=== PATIENT | female | born 1985 | race Caucasian/White ===

== ENCOUNTER 2019-11-22 10:15 | Outpatient (CLI) | payer MEDICAID, SELFPAY ==
[2019-11-22 10:49] LABS: Add Urine Microscopic? NO
[2019-11-22 10:54] LABS: Bilirubin Urine Neg (NEGATIVE); Blood Urine Neg (Negative); Glucose Urine UA Norm (Normal); Ketones Urine Negative (Negative); Leukocyte Esterase Urine Negative (Negative); Nitrate Urine Negative (Negative); Protein Urine Neg (Negative); Specific Gravity, Urine 1.025 (1.005-1.030); Urine Appearance Clear (CLEAR); Urine Color Yellow (Yellow); Urobilinogen Urine Norm (Negative)
[2019-11-22 11:00] VITALS: BP 90/54; PULSE 67
[2019-11-22 11:15] VITALS: BP 92/49; PULSE 67
[2019-11-22 11:46] LABS: Amorphous Sediment Urine 2+; Bacteria Urine TRACE; Mucus Urine TRACE; Squamous Epithelial Cell Urine 0-4 (0-5); WBC Urine 0-4 /hpf (0-5)
[2019-11-22 11:47] LABS: Add Urine Culture? No
[2019-11-22 11:48] VITALS: BP 95/54; PULSE 66
[2019-11-22 14:25] LABS: Nitrazine Paper, PH Negative
== END 2019-11-22 12:07 | disposition home or self-care (01) ==
LOC: OPOB 10:24 → OBGYN 11:58 → OPOB 11-24 14:09
PROVIDERS: Family Provider Chiropractor Orthopedic; Visit Provider Family Medicine
DX: O26.899 Other specified pregnancy related conditions, unspecified trimester (principal); Z3A.00 Weeks of gestation of pregnancy not specified; R25.2 Cramp and spasm
CPT/HCPCS: 81001; 81003; 83986; 99211

== ENCOUNTER → 2019-12-11 14:41 | Outpatient (BNVA) | payer MEDICAID, SELFPAY | PROVIDERS: Family Provider Chiropractor Orthopedic; PCP Family Medicine; Visit Provider Psychiatry & Neurology Psychiatry | DX: F60.3 Borderline personality disorder (principal); F43.12 Post-traumatic stress disorder, chronic; F33.2 Major depressive disorder, recurrent severe without psychotic features; F10.21 Alcohol dependence, in remission; F15.21 Other stimulant dependence, in remission | CPT/HCPCS: 99204 ==

== ENCOUNTER → 2020-01-01 09:44 | Outpatient (BNVA) | payer MEDICAID, SELFPAY | PROVIDERS: Family Provider Chiropractor Orthopedic; PCP Family Medicine; Visit Provider Psychiatry & Neurology Psychiatry | DX: F60.3 Borderline personality disorder (principal) | CPT/HCPCS: 99213 ==

== ENCOUNTER 2020-01-27 13:05 | Outpatient (CLI) | payer MEDICAID, SELFPAY ==
[2020-01-27] VITALS (9 sets, daily range): BP systolic 0–106; BP diastolic 0–59; PULSE 70–76; RESP 18–20; TEMP 36.9–37.1; BMI 29.0
[2020-01-27 14:20] LABS: Basophils % 0.2 %; Eosinophils # 0.1 10^3/uL (0.0-0.8); Eosinophils % 0.4 %; Hematocrit 38.8 % (37.0-47.0); Hemoglobin 12.8 g/dL (11.5-15.3); Lymphocytes # 1.6 10^3/uL (0.8-4.8); Lymphocytes % 10.7 %; Mean Corpuscular Hemoglobin 30.9 pg (28.0-34.0); Mean Corpuscular Volume 93.7 fL (81-99); Monocytes # 0.9 10^3/uL (0.2-0.9); Monocytes % 6.3 %; Neutrophils # 12.3 10^3/uL (1.8-7.7); Neutrophils % 81.8 %; Nucleated Red Blood Cells % 0 %; Platelet Count 190 10^3/cmm (130-400); Red Blood Count 4.14 10^6/uL (4.1-5.3); Red Cell Distribution Width 12.4 % (12.1-15.1)
--- NOTE | 2020-01-27 14:26 | PM.OBTRLD ---
OB L&D Triage Visit Information: Date of evaluation: 01/27/20 Evaluation: Laboratory results: Laboratory Tests 01/27/20 12:50 WBC 15.0 H RBC 4.14 Hgb 12.8 Hct 38.8 MCV 93.7 MCH 30.9 MCHC 33.0 RDW 12.4 Plt Count 190 MPV 12.0 H Neut % (Auto) 81.8 Lymph % (Auto) 10.7 [place] % (Auto) 6.3 Eos % (Auto) 0.4 Baso % (Auto) 0.2 Neut # (Auto) 12.3 H Lymph # (Auto) 1.6 [place] # (Auto) 0.9 Eos # (Auto) 0.1 Baso # (Auto) 0.0 Nucleated RBC % (a uto) 0 Nucleated RBCs # 0.0 Vital signs: Vital Signs - 24 hr 01/27/20 14:09 01/27/20 14:14 Pulse Rate 72 75 Blood Pressure 84/46 86/47 Final Diagnosis Final Diagnosis (1) Vertigo: Status: Acute Code(s): R42 - Dizziness and giddiness (2) with 29 completed weeks gestation: Status: Acute Code(s): Z3A.29 - 29 weeks gestation of (3) Amphetamine use disorder, moderate, in early remission: Status: Acute Code(s): F15.21 - Other stimulant dependence, in remission Coding Level of Care Code Acute [employer] Manager for [facility] Fw Diagnoses Vertigo R42 with 29 completed weeks gestation Z3A.29 Amphetamine use disorder, moderate, in early remission F15.21
[2020-01-27 14:36] LABS: Alanine Aminotransferase 8 U/L (0-33); Albumin Level 3.5 g/dL (3.5-5.2); Alkaline Phosphatase 79 IU/L (35-105); Anion Gap 12.2 (5-19); Aspartate Amino Transferase 12 U/L (0-32); Carbon Dioxide 27 mmol/L (22-29); Chloride 101 mmol/L (98-107); Globulin 3.3 g/dL (1.3-4.6); Glucose 97 mg/dL (65-115); Potassium 4.2 mmol/L (3.5-5.1); Sodium 136 mmol/L (136-145); Total Bilirubin 0.3 mg/dL (0.15-1.2); Total Protein 6.8 g/dL (6.6-8.7)
[2020-01-27 14:44] LABS: Blood Urea Nitrogen 9 mg/dL (6-20); Calcium 9.2 mg/dL (8.5-10.5); Glomerular Filtration Rate 180.6 mL/min (90-130); Osmolality Calculated 276 mOsm/kg (285-295)
[2020-01-27 14:56] LABS: Urine Appearance Hazy (CLEAR); Urine Color Yellow (Yellow)
[2020-01-27 14:57] LABS: Add Urine Microscopic? YES; Bilirubin Urine Neg (NEGATIVE); Blood Urine Neg (Negative); Glucose Urine UA Norm (Normal); Ketones Urine 1+ (Negative); Leukocyte Esterase Urine Negative (Negative); Nitrate Urine Negative (Negative); Protein Urine Neg (Negative); Specific Gravity, Urine 1.015 (1.005-1.030); Urobilinogen Urine 1 mg/dL (Negative); pH Urine 7 (5-7)
[2020-01-27 15:01] LABS: WBC Urine 0-4 /hpf (0-5)
[2020-01-27 15:02] LABS: Add Urine Culture? No; Amorphous Sediment Urine 2+; Bacteria Urine TRACE
[2020-01-27 15:10] LABS: Amphetamines Screen Urine Negative (Negative); Barbiturates Screen Urine Negative (Negative); Benzodiazepines Screen Urine Positive (Negative); Cocaine Screen Urine Negative (Negative); Opiate Screen Urine Negative (Negative); PCP Screen Urine Negative (Negative); THC Screen Urine Negative (Negative)
[2020-01-27] MEDS: lactated ringers 1,000 ML 999 ML IV (15:13)
[2020-01-27] MEDS: meclizine 25 mg tablet 50 MG PO (15:14)
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
== END 2020-01-27 16:40 | disposition home or self-care (01) ==
LOC: OPOB 13:13 → OBGYN 14:48 → OPOB 01-28 14:19
PROVIDERS: Family Provider Chiropractor Orthopedic; PCP Family Medicine; Visit Provider Obstetrics & Gynecology Female Pelvic Medicine and Reconstructive Surgery
DX: O26.899 Other specified pregnancy related conditions, unspecified trimester (principal); Z3A.29 29 weeks gestation of pregnancy; R42 Dizziness and giddiness; O99.323 Drug use complicating pregnancy, third trimester; F15.21 Other stimulant dependence, in remission
CPT/HCPCS: 59025; 80053; 80306; 81001; 85025; 99211; J8597

== ENCOUNTER → 2020-02-08 12:07 | Outpatient (BNVA) | payer MEDICAID, SELFPAY | PROVIDERS: Family Provider Chiropractor Orthopedic; PCP Family Medicine; Visit Provider Psychiatry & Neurology Psychiatry | DX: F41.1 Generalized anxiety disorder (principal); Z3A.29 29 weeks gestation of pregnancy; F15.21 Other stimulant dependence, in remission; F10.21 Alcohol dependence, in remission; F33.2 Major depressive disorder, recurrent severe without psychotic features; F43.12 Post-traumatic stress disorder, chronic; F60.3 Borderline personality disorder | CPT/HCPCS: 99213 ==

== ENCOUNTER → 2020-05-28 07:46 | Outpatient (BNVA) | payer MEDICAID, SELFPAY | PROVIDERS: Family Provider Chiropractor Orthopedic; PCP Family Medicine; Visit Provider Psychiatry & Neurology Psychiatry | DX: F60.3 Borderline personality disorder (principal) | CPT/HCPCS: 99213 ==

== ENCOUNTER → 2020-07-30 09:31 | Outpatient (BNVA) | payer OTHER, MEDICAID, SELFPAY | PROVIDERS: Family Provider Chiropractor Orthopedic; PCP Family Medicine; Visit Provider Psychiatry & Neurology Psychiatry | DX: F60.3 Borderline personality disorder (principal); F43.12 Post-traumatic stress disorder, chronic; F33.2 Major depressive disorder, recurrent severe without psychotic features; F10.21 Alcohol dependence, in remission; F15.21 Other stimulant dependence, in remission; F41.1 Generalized anxiety disorder | CPT/HCPCS: 99214 ==

== ENCOUNTER → 2020-07-31 13:15 | Outpatient (BNVA) | payer MEDICAID, SELFPAY | PROVIDERS: Family Provider Chiropractor Orthopedic; PCP Family Medicine; Visit Provider Psychiatry & Neurology Psychiatry | DX: F10.21 Alcohol dependence, in remission (principal) | CPT/HCPCS: 80053; 85025 ==

== ENCOUNTER → 2020-12-08 09:47 | Outpatient (BNVA) | payer OTHER, MEDICAID, SELFPAY | PROVIDERS: Family Provider Chiropractor Orthopedic; PCP Family Medicine; Visit Provider Psychiatry & Neurology Psychiatry | DX: F60.3 Borderline personality disorder (principal); F43.12 Post-traumatic stress disorder, chronic; F33.2 Major depressive disorder, recurrent severe without psychotic features; F10.21 Alcohol dependence, in remission; F15.21 Other stimulant dependence, in remission; F41.1 Generalized anxiety disorder | CPT/HCPCS: 99214 ==

== ENCOUNTER → 2021-02-26 11:59 | Outpatient (BNVA) | payer MEDICAID, SELFPAY | PROVIDERS: Family Provider Chiropractor Orthopedic; PCP Family Medicine; Visit Provider Psychiatry & Neurology Psychiatry | DX: F41.1 Generalized anxiety disorder (principal); F15.21 Other stimulant dependence, in remission; F10.21 Alcohol dependence, in remission; F33.2 Major depressive disorder, recurrent severe without psychotic features; F43.12 Post-traumatic stress disorder, chronic; F60.3 Borderline personality disorder | CPT/HCPCS: 99214 ==

== ENCOUNTER 2022-06-28 14:04 | Emergency (ER) | payer MEDICAID, SELFPAY ==
[2022-06-28 14:18] VITALS: BP 123/60; PULSE 102; RESP 18; TEMP 37.7; O2SAT 96; BMI 28.3
--- NOTE | 2022-06-28 14:56 | ED_ITS ---
Documented by User: Joel Eugene DO 06/28/22 18:38 HPI - COVID General: Chief Complaint: COVID symptoms Stated Complaint: covid positive, n/v Time Seen by Provider: 06/28/22 14:44 Triage information: Has fever, cough or shortness of breath . History of Present Illness: 37-year-old female presents emergency room with persistent nausea and vomiting patient is 13 weeks states that she has been having persistent nausea and vomiting she tested positive for COVID earlier today. He has been trying Zofran without any relief of her symptoms. She denies any vaginal he could discharge or bleeding. MD complaint: known COVID positive Prior covid testing: yes, results known Prior testing date: 06/28/22 COVID 19 common symptoms: positive fever(s), chills, cough, non-productive cough, dyspnea, fatigue, body aches, throat pain, nasal congestion, nausea and vomiting COVID 19 other sytmptoms: negative chest pain or requiring oxygen Onset (ago): day(s) Severity: mild Pertinent comorbid conditions: Treatment prior to arrival: none COVID Results: No Data to Display Review of Systems Const: Reports: fever(s), chills, body aches and fatigue ENMT: Reports: throat pain and nasal congestion Card: Denies: chest pain, edema, dyspnea on exertion or orthopnea Resp: Reports: dyspnea and non-productive cough GI: Reports: nausea and vomiting; Denies: abdominal pain : Denies: flank pain, difficulty voiding, dysuria, urinary frequency or urinary urgency Skin/Breast: Denies: rash or pruritus PFS ED PFSH: Medical History (Updated 06/28/22 @ 19:22 by Noam Strickland MD) Alcohol use disorder, severe, in early remission, dependence Amphetamine use disorder, moderate, in early remission Borderline personality disorder Generalized anxiety disorder Major depressive disorder, recurrent severe without psychotic features Post-traumatic stress disorder, chronic Social History Smoking and tobacco status: former smoker Quit status (tobacco): has quit using tobacco Year quit tobacco: 2010 Second hand smoke exposure: No Smoking risk assessment/counseling performed?: Yes Tobacco counseling given: counseling >3 minutes Female Reproductive History: Spontaneous abortions: No Physical Exam Const: COMMON NORMALS: no acute distress GENERAL APPEARANCE: cooperative and comfortable ORIENTATION/CONSCIOUSNESS: Yes awake, Yes oriented to person, Yes oriented to place and Yes oriented to time HENMT: COMMON NORMALS: normocephalic, atraumatic and hearing grossly normal bilaterally HEAD & SCALP: normocephalic and atraumatic Resp: COMMON NORMALS: normal respiratory effort, No retractions, No use of accessory muscles and clear to auscultation bilaterally AUSCULTATION: clear to auscultation bilaterally Cardio: COMMON NORMALS: regular rate, regular rhythm and No murmurs present (Cardio) RATE: regular rate RHYTHM: regular rhythm GI: COMMON NORMALS: Soft to palpation and No hepatosplenomegaly present AUSCULTATION: Yes normoactive bowel sounds PALPATION: Yes Soft to palpation, No Tenderness to palpation present (GI), No Guarding due to palpation present (GI) and Yes No hepatosplenomegaly present Extremity: COMMON NORMALS: normal to inspection, capillary refill normal, no clubbing, cyanosis or edema, no calf tenderness and no pedal edema Neuro: SENSORIUM/ORIENTATION: Yes oriented to person, Yes oriented to place and Yes oriented to time Skin: COMMON NORMALS: no rashes or lesions noted GENERAL SKIN EXAM: no rashes or lesions noted Course Vital Signs: Vital signs: Vital Signs Temperature 99.8 F H 06/28/22 14:18 Pulse Rate 74 06/28/22 17:41 Respiratory Rate 21 H 06/28/22 17:41 Blood Pressure 91/40 06/28/22 17:41 Pulse Oximetry 99 06/28/22 17:49 Oxygen Delivery Me thod 06/28/22 17:49 MDM - COVID Medical Decision Making Care signed out to Dr. Strickland at change of shift. See final notes for diagnosis and disposition. Lab Data : 06/28/22 17:42 06/28/22 17:42 Laboratory Results WBC 7.3 10^3/uL (4.0-10.0) 06/28/22 17:42 RBC 3.99 10^6/uL (4.1-5.3) L 06/28/22 17:42 Hgb 12.3 g/dL (11.5-15.3) 06/28/22 17:42 Hct 36.2 % (37.0-47.0) L 06/28/22 17:42 MCV 90.7 fl (81-99) 06/28/22 17:42 MCH 30.8 pg (28.0-34.0) 06/28/22 17: MCHC 34.0 g/dL (30.0-36.0) 06/28/22 17:42 RDW 12.0 % (12.1-15.1) L 06/28/22 17:42 Plt Count 153 10^3/cmm (130-400) 06/28/22 17:42 MPV 11.4 fL (7.4-10.4) H 06/28/22 17:42 Neut % (Auto) 83.8 % 06/28/22 17:42 Lymph % (Auto) 7.8 % 06/28/22 17: [place] % (Auto) 7.8 % 06/28/22 17: Eos % (Auto) 0.0 % 06/28/22 17: Baso % (Auto) 0.3 % 06/28/22: Neut # (Auto) 6.15 10^3/uL (1.8-7.7) 06/28/22 17:42 Lymph # (Auto) 0.6 10^3/uL (0.8-4.8) L 06/28/22 17:42 [place] # (Auto) 0.6 10^3/uL (0.2-0.9) 06/28/22 17:42 Eos # (Auto) 0.0 10^3/uL (0.0-0.8) 06/28/22 17: Baso # (Auto) 0.0 10^3/uL (0.0-0.1) 06/28/22 17:42 Nucleated RBC % (auto) 0 % 06/28/22 17: Nucleated RBCs # 0.0 /100WBC 06/28/22 17:42 Sodium 130 mmol/L (136-145) L 06/28/22 17:42 Potassium 3.8 mmol/L (3.5-5.1) 06/28/22 17:42 Chloride 95 mmol/L (98-107) L 06/28/22 17:42 Carbon Dioxide 21 mmol/L (22-29) L 06/28/22 17:42 Anion Gap 17.8 (5-19) 06/28/22 17:42 BUN 5 mg/dL (6-20) L 06/28/22 17:42 Creatinine 0.4 mg/dL (0.5-0.9) L 06/28/22 17:42 GFR Calculation 177.7 mL/min (90-130) H 06/28/22 17:42 Glucose 89 mg/dL (65-115) 06/28/22 17:42 Calculated Osmolality 267 mOsm/kg (285-295) L 06/28/22 17:42 Calcium 8.3 mg/dL (8.5-10.5) L 06/28/22 17:42 Total Bilirubin 0.4 mg/dL (0.15-1.2) 06/28/22 17:42 AST 14 U/L (0-32) 06/28/22 17:42 ALT 9 U/L (0-33) 06/28/22 17:42 Alkaline Phosphatase 62 U/L (35-105) 06/28/22 17:42 Total Protein 6.2 g/dL (6.6-8.7) L 06/28/22 17:42 Albumin 3.4 g/dL (3.5-5.2) L 06/28/22 17:42 Globulin 2.8 g/dL (1.3-4.6) 06/28/22 17:42 Urine Color Yellow (Yellow) 06/28/22 17:57 Urine Appearance Clear (CLEAR) 06/28/22 17:57 Urine pH 6 (5-7) 06/28/22 17:57 Ur Specific [place] 1.000 (1.005-1.030) L 06/28/22 17:57 Urine Protein Neg (Negative) 06/28/22 17:57 Urine Glucose (UA) Norm (Normal) 06/28/22 17:57 Urine Ketones 2+ (Negative) H 06/28/22 17:57 Urine Blood 2+ (Negative) H 06/28/22 17:57 Urine Nitrate Negative (Negative) 06/28/22 17:57 Urine Bilirubin Neg (Negative) 06/28/22 17:57 Urine Urobilinogen Norm mg/dL (Negative) 06/28/22 17:57 Ur Leukocyte Esterase Negative (Negative) 06/28/22 17:57 Urine RBC 0-4 /hpf (0-2) H 06/28/22 17:57 Urine WBC 0-4 /hpf (0-5) H 06/28/22 17:57 Ur Squamous Epith Cells 0-4 /hpf (0-5) H 06/28/22 17:57 Amorphous Sediment Not Reportable 06/28/22 17:57 Urine Bacteria Trace /hpf (NONE) 06/28/22 17:57 No Data to Display Discharge Plan Discharge Patient Disposition: Home Clinical Impression: Vomiting affecting , COVID-19 Condition: Stable Prescriptions: New Reglan 10 mg tablet 10 mg PO Q6H PRN (Reason: nausea and vomiting) Qty: 20 0RF No Action Tylenol Ex Str Rapid Release 500 mg Tablet 1,000 mg PO Q6H PRN (Reason: Pain) ergocalciferol (vitamin D2) 1,250 mcg (50,000 unit) capsule 50,000 unit PO Q7D Rx Instructions: on Multivitamins 28 mg iron- 800 mcg Tablet 1 tab PO DAILY buspirone 15 mg tablet 7.5 mg PO BEDTIME Discharge Orders: Discharge ED (Routine); Ordered 06/28/22 Ordered By: Noam Strickland Referrals: Julito Cadena MD [Primary Care Provider] - Discharge Diet: Advance as tolerated Discharge Activity: Resume usual activity Patient Instructions: Acute Nausea and Vomiting (ED), COVID-19 (Coronavirus Disease 2019) (ED) Coding Level of Care Code ED Waste Dis[employer] Leakage Tester for Chg Fwd Exam Detailed Documented by User: Noam Strickland MD 06/28/22 20:24 HPI - COVID General: Chief Complaint: COVID symptoms Stated Complaint: covid positive, n/v Time Seen by Provider: 06/28/22 14:44 COVID Results: No Data to Display PFSH ED PFSH: Medical History (Updated 06/28/22 @ 19:22 by Noam Strickland MD) Alcohol use disorder, severe, in early remission, dependence Amphetamine use disorder, moderate, in early remission Borderline personality disorder Generalized anxiety disorder Major depressive disorder, recurrent severe without psychotic features Post-traumatic stress disorder, chronic Social History Smoking and tobacco status: former smoker Quit status (tobacco): has quit using tobacco Year quit tobacco: 2010 Second hand smoke exposure: No Smoking risk assessment/counseling performed?: Yes Tobacco counseling given: counseling >3 minutes Course Vital Signs: Vital signs: Vital Signs Temperature 99.8 F H 06/28/22 14:18 Pulse Rate 74 06/28/22 17:41 Respiratory Rate 21 H 06/28/22 17:41 Blood Pressure 91/40 06/28/22 17:41 Pulse Oximetry 99 06/28/22 17:49 Oxygen Delivery Me thod 06/28/22 17:49 MDM - COVID Medical Decision Making Care signed out to Dr. Strickland at change of shift. See final notes for diagnosis and disposition. Patient presents with COVID along with vomiting in she feels improved here after meds and fluids blood work is normal she is stable for discharge she is to follow-up with OB and return if worsening she understands agrees to plan. Lab Data : 06/28/22 17:42 06/28/22 17:42 Laboratory Results WBC 7.3 10^3/uL (4.0-10.0) 06/28/22 17:42 RBC 3.99 10^6/uL (4.1-5.3) L 06/28/22 17:42 Hgb 12.3 g/dL (11.5-15.3) 06/28/22 17:42 Hct 36.2 % (37.0-47.0) L 06/28/22 17:42 MCV 90.7 fl (81-99) 06/28/22 17:42 MCH 30.8 pg (28.0-34.0) 06/28/22 17:42 MCHC 34.0 g/dL (30.0-36.0) 06/28/22 17:42 RDW 12.0 % (12.1-15.1) L 06/28/22 17:42 Plt Count 153 10^3/cmm (130-400) 06/28/22 17:42 MPV 11.4 fL (7.4-10.4) H 06/28/22 17:42 Neut % (Auto) 83.8 % 06/28/22 17:42 Lymph % (Auto) 7.8 % 06/28/22 17:42 [place] % (Auto) 7.8 % 06/28/22 17:42 Eos % (Auto) 0.0 % 06/28/22 17:42 Baso % (Auto) 0.3 % 06/28/22 17:42 Neut # (Auto) 6.15 10^3/uL (1.8-7.7) 06/28/22 17:42 Lymph # (Auto) 0.6 10^3/uL (0.8-4.8) L 06/28/22 17:42 [place] # (Auto) 0.6 10^3/uL (0.2-0.9) 06/28/22 17:42 Eos # (Auto) 0.0 10^3/uL (0.0-0.8) 06/28/22 17:42 Baso # (Auto) 0.0 10^3/uL (0.0-0.1) 06/28/22 17:42 Nucleated RBC % (auto) 0 % 06/28/22 17:42 Nucleated RBCs # 0.0 /100WBC 06/28/22 17:42 Sodium 130 mmol/L (136-145) L 06/28/22 17:42 Potassium 3.8 mmol/L (3.5-5.1) 06/28/22 17:42 Chloride 95 mmol/L (98-107) L 06/28/22 17:42 Carbon Dioxide 21 mmol/L (22-29) L 06/28/22 17:42 Anion Gap 17.8 (5-19) 06/28/22 17:42 BUN 5 mg/dL (6-20) L 06/28/22 17:42 Creatinine 0.4 mg/dL (0.5-0.9) L 06/28/22 17:42 GFR Calculation 177.7 mL/min (90-130) H 06/28/22 17:42 Glucose 89 mg/dL (65-115) 06/28/22 17:42 Calculated Osmolality 267 mOsm/kg (285-295) L 06/28/22 17:42 Calcium 8.3 mg/dL (8.5-10.5) L 06/28/22 17:42 Total Bilirubin 0.4 mg/dL (0.15-1.2) 06/28/22 17:42 AST 14 U/L (0-32) 06/28/22 17:42 ALT 9 U/L (0-33) 06/28/22 17:42 Alkaline Phosphatase 62 U/L (35-105) 06/28/22 17:42 Total Protein 6.2 g/dL (6.6-8.7) L 06/28/22 17:42 Albumin 3.4 g/dL (3.5-5.2) L 06/28/22 17:42 Globulin 2.8 g/dL (1.3-4.6) 06/28/22 17:42 Urine Color Yellow (Yellow) 06/28/22 17:57 Urine Appearance Clear (CLEAR) 06/28/22 17:57 Urine pH 6 (5-7) 06/28/22 17:57 Ur Specific [place] 1.000 (1.005-1.030) L 06/28/22 17:57 Urine Protein Neg (Negative) 06/28/22 17:57 Urine Glucose (UA) Norm (Normal) 06/28/22 17:57 Urine Ketones 2+ (Negative) H 06/28/22 17:57 Urine Blood 2+ (Negative) H 06/28/22 17:57 Urine Nitrate Negative (Negative) 06/28/22 17:57 Urine Bilirubin Neg (Negative) 06/28/22 17:57 Urine Urobilinogen Norm mg/dL (Negative) 06/28/22 17:57 Ur Leukocyte Esterase Negative (Negative) 06/28/22 17:57 Urine RBC 0-4 /hpf (0-2) H 06/28/22 17:57 Urine WBC 0-4 /hpf (0-5) H 06/28/22 17:57 Ur Squamous Epith Cells 0-4 /hpf (0-5) H 06/28/22 17:57 Amorphous Sediment Not Reportable 06/28/22 17:57 Urine Bacteria Trace /hpf (NONE) 06/28/22 17:57 No Data to Display Discharge Plan Discharge Patient Disposition: Home Clinical Impression: Vomiting affecting , COVID-19 Condition: Stable Prescriptions: New Reglan 10 mg tablet 10 mg PO Q6H PRN (Reason: nausea and vomiting) Qty: 20 0RF No Action Tylenol Ex Str Rapid Release 500 mg Tablet 1,000 mg PO Q6H PRN (Reason: Pain) ergocalciferol (vitamin D2) 1,250 mcg (50,000 unit) capsule 50,000 unit PO Q7D Rx Instructions: on Multivitamins 28 mg iron- 800 mcg Tablet 1 tab PO DAILY buspirone 15 mg tablet 7.5 mg PO BEDTIME Discharge Orders: Discharge ED (Routine); Ordered 06/28/22 Ordered By: Noam Strickland Referrals: Julito Cadena MD [Primary Care Provider] - Discharge Diet: Advance as tolerated Discharge Activity: Resume usual activity Patient Instructions: Acute Nausea and Vomiting (ED), COVID-19 (Coronavirus Disease 2019) (ED) Coding Level of Care Code ED Waste Disposal Leakage Tester for Ming Fwd Exam Detailed
[2022-06-28] MEDS: sodium chloride 0.9% 1,000 ML 999 ML IV (17:40)
[2022-06-28 17:41] VITALS: BP 91/40; PULSE 74; RESP 21; O2SAT 99
[2022-06-28] MEDS: promethazine 25 mg/mL SDV 1 mL IM (17:41)
[2022-06-28 17:49] VITALS: O2SAT 99
[2022-06-28 17:50] LABS: Basophils % 0.3 %; Hematocrit 36.2 % (37.0-47.0); Hemoglobin 12.3 g/dL (11.5-15.3); Lymphocytes # 0.6 10^3/uL (0.8-4.8); Lymphocytes % 7.8 %; Mean Corpuscular Hemoglobin 30.8 pg (28.0-34.0); Mean Corpuscular Volume 90.7 fl (81-99); Mean Platelet Volume 11.4 fL (7.4-10.4); Monocytes # 0.6 10^3/uL (0.2-0.9); Monocytes % 7.8 %; Neutrophils # 6.15 10^3/uL (1.8-7.7); Neutrophils % 83.8 %; Nucleated Red Blood Cells % 0 %; Platelet Count 153 10^3/cmm (130-400); Red Blood Count 3.99 10^6/uL (4.1-5.3); White Blood Count 7.3 10^3/uL (4.0-10.0)
[2022-06-28 18:29] LABS: Alanine Aminotransferase 9 U/L (0-33); Albumin Level 3.4 g/dL (3.5-5.2); Alkaline Phosphatase 62 U/L (35-105); Anion Gap 17.8 (5-19); Aspartate Amino Transferase 14 U/L (0-32); Blood Urea Nitrogen 5 mg/dL (6-20); Calcium 8.3 mg/dL (8.5-10.5); Carbon Dioxide 21 mmol/L (22-29); Chloride 95 mmol/L (98-107); Globulin 2.8 g/dL (1.3-4.6); Glomerular Filtration Rate 177.7 mL/min (90-130); Glucose 89 mg/dL (65-115); Osmolality Calculated 267 mOsm/kg (285-295); Potassium 3.8 mmol/L (3.5-5.1); Sodium 130 mmol/L (136-145); Total Bilirubin 0.4 mg/dL (0.15-1.2); Total Protein 6.2 g/dL (6.6-8.7)
[2022-06-28 19:03] LABS: Add Urine Culture? No; Add Urine Microscopic? YES; Bacteria Urine TRACE /hpf; Bilirubin Urine Neg (Negative); Blood Urine 2+ (Negative); Glucose Urine UA Norm (Normal); Ketones Urine 2+ (Negative); Leukocyte Esterase Urine Negative (Negative); Nitrate Urine Negative (Negative); Protein Urine Neg (Negative); RBC Urine 0-4 /hpf (0-2); Squamous Epithelial Cell Urine 0-4 /hpf (0-5); Urine Appearance Clear (CLEAR); Urine Color Yellow (Yellow); Urobilinogen Urine Norm (Negative); WBC Urine 0-4 /hpf (0-5); pH Urine 6 (5-7)
[2022-06-28] MEDS: morphine 4 mg/mL SDV 1 mL IVP (19:28)
[2022-06-28 19:30] VITALS: BP 99/55; PULSE 88; O2SAT 99
[2022-06-28 20:00] VITALS: BP 108/60; PULSE 83; O2SAT 100
[2022-06-28 20:29] VITALS: BP 108/60; PULSE 83; O2SAT 100
== END 2022-06-28 20:32 | disposition home or self-care (01) ==
PROVIDERS: Family Medicine; Emergency Provider Emergency Medicine; PCP Family Medicine
DX: O98.511 Other viral diseases complicating pregnancy, first trimester (principal); U07.1 COVID-19; O21.9 Vomiting of pregnancy, unspecified; Z3A.13 13 weeks gestation of pregnancy; Z87.891 Personal history of nicotine dependence
CPT/HCPCS: 80053; 81001; 85025; 96372; 96374; 99284; J2270; J2550; J7030

== ENCOUNTER 2022-08-03 07:41 | Outpatient (CLI) | payer MEDICAID, SELFPAY ==
--- NOTE | 2022-08-03 07:47 | US_ITS ---
WS: [id number] LIMITED OBSTETRICAL ULTRASOUND HISTORY: UTERINE SIZE-DATE DISCREPANCY IN FIRST TRIMESTER COMPARISON: None available. Presentation: Breech Cervix: Closed and normal length. Cervical length 5.7 cm. Placenta: Anterior, no previa or abruption. Grade: 0 HEART: FHR of 138 BPM. measurements: BPD = 4.2 cm = 18w6d HC = 16.3 cm = 19w0d AC = 12.3 cm = 18w0d FL = 2.8 cm = 18w4d Normal amniotic fluid. EFW: 235 g; %. AGA by ultrasound: 18w5d ROBYN by ultrasound: 12/30/2022 US/US OB <= 14 weeks fetus [id number] IMPRESSION: 1. Single intrauterine gestation of 18 weeks 5 days with an EDC of 12/30/2022. 2. Normal amniotic fluid. 3. Normal cardiac activity.
== END 2022-08-03 07:42 | disposition home or self-care (01) ==
PROVIDERS: PCP Family Medicine; Visit Provider Nurse Practitioner Family
DX: O26.841 Uterine size-date discrepancy, first trimester; Z3A.18 18 weeks gestation of pregnancy
CPT/HCPCS: 76801